=== PATIENT | female | born 1955 | race Caucasian/White ===

== ENCOUNTER 2020-10-25 20:13 | Emergency (ER) | payer OTHER ==
--- NOTE | 2020-10-25 20:43 | XRAY Report ---
PROCEDURE: Chest 1 View X-Ray INDICATIONS: Chest pain TECHNIQUE: One view of the chest was acquired. COMPARISON: Chest radiographs 08/02/2015 FINDINGS: Surgical changes and devices: None. Lungs and pleura: No pleural effusions or pneumothorax. Lungs are clear. Mediastinum: Mediastinal contours appear normal. Heart size is normal. Bones and chest wall: No suspicious bony lesions. Overlying soft tissues appear unremarkable. IMPRESSION: No acute cardiopulmonary abnormality. Reviewed by: Gaetano Catalan MD on 10/25/2020 8:41 PM PDT Approved by: Gaetano Catalan MD on 10/25/2020 8:41 PM PDT Station ID: [id number]
[2020-10-25 20:45] LABS: BASOPHILS % (AUTO) 0.5 %; EOSINOPHILS # (AUTO) 0.1 10^3/uL (0.0-0.7); EOSINOPHILS % (AUTO) 1.7 %; HCT - HEMATOCRIT 41.7 % (37.0-47.0); HGB - HEMOGLOBIN 14.2 g/dL (12.0-16.0); LYMPHOCYTES # (AUTO) 1.7 10^3/uL (1.5-3.5); LYMPHOCYTES % (AUTO) 21.9 %; MEAN CORPUSCULAR HEMOGLOBIN 32.8 pg (27.0-31.0); MEAN CORPUSCULAR HGB CONC 34.1 g/dL (32.0-36.0); MEAN CORPUSCULAR VOLUME 96.3 fL (81.0-99.0); MEAN PLATELET VOLUME 8.1 fL (7.9-10.8); MONOCYTES # (AUTO) 0.7 10^3/uL (0.0-1.0); MONOCYTES % (AUTO) 9.1 %; NEUTROPHILS # (AUTO) 5.1 10^3/uL (1.5-6.6); NEUTROPHILS % (AUTO) 66.7 %; PLT - PLATELET COUNT 226 10^3/uL (130-450); RED BLOOD COUNT 4.33 10^6/uL (4.20-5.40); RED CELL DISTRIBUTION WIDTH 11.6 % (12.0-15.0); WHITE BLOOD COUNT 7.7 x10^3/uL (4.8-10.8)
[2020-10-25 20:59] LABS: ALBUMIN 4.7 g/dL (3.2-5.5); ALBUMIN/GLOBULIN RATIO 1.3 (1.0-2.2); BILIRUBIN,TOTAL 0.7 mg/dL (0.2-1.0); CALCIUM 9.6 mg/dL (8.5-10.3); CREATININE 0.8 mg/dL (0.4-1.0); POTASSIUM 4.1 mmol/L (3.5-5.0); TOTAL PROTEIN 8.4 g/dL (6.7-8.2)
--- NOTE | 2020-10-25 21:48 | ED Physician Documentation ---
PD HPI CHEST PAIN - Stated complaint Stated Complaint: CHEST PX/N/V/DIARRHEA/DIZZINESS - Chief complaint Chief Complaint: Cardiac - History obtained from History obtained from: Patient - History of Present Illness Timing - onset: How many weeks ago (3) Timing - onset during: Rest Timing - duration: Weeks (3) Timing - details: Gradual onset, Still present, Waxing and waning Quality: Dull, Pain Location: Left chest Improved by: Rest Associated symptoms: Nausea, Vomiting, Cough, Other (diarrhea) Similar symptoms before: Diagnosis (flu) Recently seen: Other (had covid vaccine moderna) - Additional information Additional information: 65 y/o female sick for a month with symptoms including abdominal pain, nausea, cough with phlem and fatigue. She reports a COVID exposure between her 2 moderna shots and is concerned about covid. Review of Systems Constitutional: reports: Myalgias, Fatigue. denies: Fever Eyes: denies: Decreased vision Ears: denies: Ear pain Nose: reports: Congestion. denies: Rhinorrhea / runny nose Throat: denies: Sore throat Cardiac: reports: Chest pain / pressure Respiratory: reports: Cough GI: reports: Nausea, Vomiting, Diarrhea : reports: Dysuria. denies: Frequency PD PAST MEDICAL HISTORY - Past Medical History Cardiovascular: Hypertension, High cholesterol Respiratory: Asthma, COPD, Pneumonia, Sleep apnea Psych: Depression, Bipolar disorder - Past Surgical History Past Surgical History: Yes HEENT: Other - Present Medications Home Medications: Ambulatory Orders Medication Instructions Recorded Confirmed Albuterol Sulfate [Albuterol 2 puffs IH Q4HR PRN #1 hfa.aer.ad 05/07/14 09/01/15 Sulfate Hfa] Albuterol [Ventolin Hfa] 2 puffs PO BID 05/07/14 09/01/15 Fluticasone/Salmeterol [Advair 1 puffs PO BID 05/07/14 09/01/15 100-50 Diskus] Propranolol [Inderal] 40 mg PO DAILY 05/07/14 08/02/15 clonazePAM [Clonazepam] 1 mg PO BID 05/07/14 09/01/15 lamoTRIgine [LaMICtal] 300 mg PO DAILY 05/07/14 06/29/14 lamoTRIgine [Lamictal] 50 mg PO DAILY 05/07/14 06/29/14 guaiFENesin/CODEINE [Robitussin AC] 5 - 10 ml PO Q6H PRN #120 ml 06/02/14 09/01/15 buPROPion HCL [Bupropion HCl] 300 mg PO DAILY 06/29/14 09/01/15 Quetiapine Fumarate [Seroquel] 200 mg PO DAILY 08/02/15 Calcium Carbonate/Vitamin D3 [Hm 1 tab PO BID 09/01/15 09/01/15 Calcium 500-Vit D3 200 Cplt] Nystatin Cream [Mycostatin Cream] 1 applic TOP BID 09/01/15 09/01/15 Omeprazole 40 mg PO DAILY 09/01/15 09/01/15 Prazosin HCl 1 cap PO DAILY 09/01/15 09/01/15 QUEtiapine [SEROquel] 600 mg PO DAILY 09/01/15 09/01/15 Quetiapine Fumarate [Seroquel] 50 mg PO DAILY 09/01/15 09/01/15 buPROPion [Wellbutrin Sr] 100 mg PO DAILY 09/01/15 09/01/15 traZODone [Desyrel] 150 mg PO DAILY 09/01/15 09/01/15 Azithromycin [Zithromax] 250 mg PO DAILY #4 tablet 10/26/20 Ondansetron Odt [Zofran] 4 mg TL Q6H PRN #10 tablet 10/26/20 - Allergies Allergies/Adverse Reactions: Allergies Allergy/AdvReac Type Severity Reaction Status Date / Time antidepressant Allergy Unknown Uncoded 10/25/20 20:19 - Social History Does the pt smoke?: Yes Smoking Status: Current some day smoker Does the pt drink ETOH?: No Does the pt have substance abuse?: No - Immunizations Immunizations are current?: No - POLST Patient has POLST: No PD ED PE NORMAL - Vitals Vital signs reviewed: Yes (Hypertensive) - General General: Alert and oriented X 3, No acute distress, Well developed/nourished - HEENT HEENT: Atraumatic, PERRL, EOMI - Neck Neck: Supple, no meningeal sign, No bony TTP - Cardiac Cardiac: No murmur, Other (Tachycardic to 101) - Respiratory Respiratory: No respiratory distress, Clear bilaterally - Abdomen Abdomen: Normal bowel sounds, Soft, Non tender, Non distended, No organomegaly - Back Back: No CVA TTP, No spinal TTP - Derm Derm: Normal color, Warm and dry, No rash - Extremities Extremities: No deformity, No edema - Neuro Neuro: Alert and oriented X 3, nurse practitioner 2-12 intact, No motor deficit, No sensory deficit, Normal speech Eye Opening: Spontaneous Motor: Obeys Commands Verbal: Oriented GCS Score: 15 - Psych Psych: Normal mood, Normal affect Results - Vitals Vitals: Vital Signs - 24 hr 10/25/20 10/25/20 10/26/20 20:19 22:22 00:00 Temperature 36.5 C Heart Rate 72 93 84 Respiratory 16 18 15 Rate Blood Pressure 160/90 H 111/72 135/81 H O2 Saturation 98 95 97 10/26/20 10/26/20 00:46 01:24 Temperature 36.8 C Heart Rate 80 76 Respiratory 15 18 Rate Blood Pressure 133/73 H 132/76 H O2 Saturation 97 100 Oxygen O2 Source Room air - EKG (time done) 2014 Rate: Rate (enter#) (72) Rhythm: NSR Ischemia: Normal ST segments Compare to prior EKG: Unchanged from prior EKG (SPT 08-02-15 no changes ) Computer interpretation: Agree with computer - Labs Labs: Laboratory Tests 10/25/20 10/25/20 10/25/20 20:37 20:37 20:37 WBC 7.7 RBC 4.33 Hgb 14.2 Hct 41.7 MCV 96.3 MCH 32.8 H MCHC 34.1 RDW 11.6 L Plt Count 226 MPV 8.1 Neut # (Auto) 5.1 Lymph # (Auto) 1.7 [place] # (Auto) 0.7 Eos # (Auto) 0.1 Baso # (Auto) 0.0 Absolute Nucleated RBC 0.00 Nucleated RBC % 0.0 Sodium 139 Potassium 4.1 Chloride 103 Carbon Dioxide 27 Anion Gap 9.0 BUN 11 Creatinine 0.8 Estimated GFR (MDRD) 72 L Glucose 95 Calcium 9.6 Total Bilirubin 0.7 AST 24 ALT 31 Alkaline Phosphatase 80 Troponin I High Sens 4.9 Total Protein 8.4 H Albumin 4.7 Globulin 3.7 Albumin/Globulin Ratio 1.3 Lipase 44 Urine Color Urine Clarity Urine pH Ur Specific [place] Urine Protein Urine Glucose (UA) Urine Ketones Urine Occult Blood Urine Nitrite Urine Bilirubin Urine Urobilinogen Ur Leukocyte Esterase Ur Microscopic Review Urine Culture Comments Nasal Adenovirus (PCR) Nasal B. parapertussis DNA (PCR) Nasal Coronavir 229E PCR Nasal Coronavir HKU1 PCR Nasal Coronavir NL63 PCR Nasal Coronavir OC43 PCR Nasal Enterovir/Rhinovir PCR Nasal Influenza B PCR Nasal Influenza A PCR Nasal Parainfluen 1 PCR Nasal Parainfluen 2 PCR Nasal Parainfluen 3 PCR Nasal Parainfluen 4 PCR Nasal RSV (PCR) Nasal B.pertussis DNA PCR Nasal C.pneumoniae (PCR) Clemencia Human Metapneumo PCR Nasal M.pneumoniae (PCR) Nasal SARS-CoV-2 (PCR) 10/25/20 10/25/20 22:31 23:20 WBC RBC Hgb Hct MCV MCH MCHC RDW Plt Count MPV Neut # (Auto) Lymph # (Auto) [place] # (Auto) Eos # (Auto) Baso # (Auto) Absolute Nucleated RBC Nucleated RBC % Sodium Potassium Chloride Carbon Dioxide Anion Gap BUN Creatinine Estimated GFR (MDRD) Glucose Calcium Total Bilirubin AST ALT Alkaline Phosphatase Troponin I High Sens Total Protein Albumin Globulin Albumin/Globulin Ratio Lipase Urine Color YELLOW Urine Clarity CLEAR Urine pH 5.5 Ur Specific [place] 1.015 Urine Protein NEGATIVE Urine Glucose (UA) NEGATIVE Urine Ketones 15 H Urine Occult Blood NEGATIVE Urine Nitrite NEGATIVE Urine Bilirubin NEGATIVE Urine Urobilinogen 0.2 (NORMAL) Ur Leukocyte Esterase NEGATIVE Ur Microscopic Review NOT INDICATED Urine Culture Comments NOT INDICATED Nasal Adenovirus (PCR) NOT DETECTED Nasal B. parapertussis DNA (PCR) NOT DETECTED Nasal Coronavir 229E PCR NOT DETECTED Nasal Coronavir HKU1 PCR NOT DETECTED Nasal Coronavir NL63 PCR NOT DETECTED Nasal Coronavir OC43 PCR NOT DETECTED Nasal Enterovir/Rhinovir PCR NOT DETECTED Nasal Influenza B PCR NOT DETECTED Nasal Influenza A PCR NOT DETECTED Nasal Parainfluen 1 PCR NOT DETECTED Nasal Parainfluen 2 PCR NOT DETECTED Nasal Parainfluen 3 PCR NOT DETECTED Nasal Parainfluen 4 PCR NOT DETECTED Nasal RSV (PCR) NOT DETECTED Nasal B.pertussis DNA PCR NOT DETECTED Nasal C.pneumoniae (PCR) NOT DETECTED [place] Human Metapneumo PCR NOT DETECTED Nasal M.pneumoniae (PCR) NOT DETECTED Nasal SARS-CoV-2 (PCR) NOT DETECTED - Rads (name of study) chest Radiology: Prelim report reviewed (Impression: No acute cardiopulmonary abnormality.), EMP read indepedently, See rad report Procedures - IVC sono (time) 2229 Bedside IVC sono: IVC measures (cm) (0.88), Dehydration (est 2 liter deficit) PD MEDICAL DECISION MAKING - ED course Complexity details: reviewed results, re-evaluated patient, considered differential, d/w patient ED course: 65-year-old female with some GI upset that is gone on for quite some time is also developed cough and congestion she is worried about Covid exposure. She has been fully vaccinated with Moderna and she had an exposure between her 2 shots. Today we found her to be dehydrated on interrogation of the inferior vena cava and we had administered intravenous saline. The patient has a history of reactive airway disease and she has had a cough p roductive of yellow phlegm for some time now. I have asked the patient if she wanted to start antibiotic or treatment for this and she readily accepted this as very likely something that would help. She has had similar symptoms previously which improved with treatment. She is ministered dexamethasone and a azithromycin. We found her to be covid negative . Departure - Departure Disposition: 01 Home, Self Care Clinical Impression: Bronchitis, Dehydration determined by examination Condition: Stable Instructions: ED Upper Resp Infec Abx Tx, ED Dehydration Follow-Up: [facility] [Provider Group] Prescriptions: Azithromycin [Zithromax] 250 mg PO DAILY #4 tablet Ondansetron Odt [Zofran] 4 mg TL Q6H PRN #10 tablet PRN Reason: Nausea / Vomiting Discharge Date/Time: 10/26/20 01:18
[2020-10-25] MEDS ORDERED: SODIUM CHLORIDE 0.9% 1,000 ML IV STA (22:33)
[2020-10-25 23:30] LABS: BILIRUBIN,URINE NEGATIVE (NEGATIVE); GLUCOSE, URINE (UA) NEGATIVE (NEGATIVE); KETONES,URINE (UA) 15 mg/dL (NEGATIVE); LEUKOCYTE ESTERASE, URINE NEGATIVE (NEGATIVE); NITRITE,URINE NEGATIVE (NEGATIVE); OCCULT BLOOD,URINE NEGATIVE (NEGATIVE); PH,URINE 5.5 PH (5.0-7.5); PROTEIN,URINE NEGATIVE (NEGATIVE); UROBILINOGEN,URINE 0.2 (NORMAL) E.U./dL (NORMAL)
[2020-10-25 23:31] LABS: CORONAVIRUS 229E-RESP PCR NOT DETECTED; CORONAVIRUS HKU1-RESP PCR NOT DETECTED; CORONAVIRUS NL63-RESP PCR NOT DETECTED; CORONAVIRUS OC43-RESP PCR NOT DETECTED; HUMAN METAPNEUMOVIRUS NOT DETECTED; INFLUENZA A- RESP PCR PANEL NOT DETECTED; RHINOVIRUS/ENTEROVIRUS NOT DETECTED; SARS-CoV-2 -RESP PCR PANEL NOT DETECTED
[2020-10-25 23:31] LABS: CLARITY,URINE CLEAR (CLEAR)
[2020-10-25 23:32] LABS: B. PARAPERTUSSIS- RESP PCR PAN NOT DETECTED; B. PERTUSSIS- RESP PCR PANEL NOT DETECTED; C. PNEUMONIAE- RESP PCR PANEL NOT DETECTED; INFLUENZA B - RESP PCR PANEL NOT DETECTED; M. PNEUMONIAE- RESP PCR PANEL NOT DETECTED; PARAINFLUENZA VIRUS 1 NOT DETECTED; PARAINFLUENZA VIRUS 2 NOT DETECTED; PARAINFLUENZA VIRUS 3 NOT DETECTED; PARAINFLUENZA VIRUS 4 NOT DETECTED; RSV- RESP PCR PANEL NOT DETECTED
[2020-10-26] MEDS ORDERED: ONDANSETRON 4 MG/2 ML VIAL IVP STA (00:23)
[2020-10-26] MEDS ORDERED: AZITHROMYCIN 250 MG TABLET PO STA (00:23)
[2020-10-26] MEDS ORDERED: DEXAMETHASONE 10 MG/ML VIAL IVP STA (00:23)
[2020-10-26 01:25] VITALS: BP 132/76
== END 2020-10-26 01:18 | disposition home or self-care (01) ==
LOC: ED 20:13
DX: J40 Bronchitis, not specified as acute or chronic (principal); E86.0 Dehydration; F17.200 Nicotine dependence, unspecified, uncomplicated; Z20.822 Contact with and (suspected) exposure to COVID-19
CPT/HCPCS: 0202U; 36415; 71045; 80053; 81003; 83690; 84484; 85025; 93005; 96361; 96374; 96375; 99284; A9270; 81001; 87086

== ENCOUNTER 2020-10-29 22:23 | Emergency (ER) | payer OTHER ==
[2020-10-29 22:41] LABS: BASOPHILS % (AUTO) 0.6 %; EOSINOPHILS # (AUTO) 0.2 10^3/uL (0.0-0.7); EOSINOPHILS % (AUTO) 2.5 %; HCT - HEMATOCRIT 41.4 % (37.0-47.0); HGB - HEMOGLOBIN 14.4 g/dL (12.0-16.0); LYMPHOCYTES # (AUTO) 1.6 10^3/uL (1.5-3.5); LYMPHOCYTES % (AUTO) 24.8 %; MEAN CORPUSCULAR HEMOGLOBIN 33.6 pg (27.0-31.0); MEAN CORPUSCULAR HGB CONC 34.8 g/dL (32.0-36.0); MEAN CORPUSCULAR VOLUME 96.5 fL (81.0-99.0); MEAN PLATELET VOLUME 8.3 fL (7.9-10.8); MONOCYTES # (AUTO) 0.6 10^3/uL (0.0-1.0); MONOCYTES % (AUTO) 9.6 %; NEUTROPHILS % (AUTO) 62.2 %; PLT - PLATELET COUNT 222 10^3/uL (130-450); RED BLOOD COUNT 4.29 10^6/uL (4.20-5.40); RED CELL DISTRIBUTION WIDTH 11.7 % (12.0-15.0); WHITE BLOOD COUNT 6.4 x10^3/uL (4.8-10.8)
--- NOTE | 2020-10-29 22:41 | ED Physician Documentation ---
PD HPI CHEST PAIN - Stated complaint Stated Complaint: HIGH BP, CHEST PX, R FT NUMB, DIRRHEA - Chief complaint Chief Complaint: Cardiac - History obtained from History obtained from: Patient - Additional information Additional information: 65-year-old woman with history of bipolar disorder, high blood pressure on losartan 25 mg, presents with nausea, dizziness, chest pain, and diarrhea that she reports has been going on the past several hours. She also took her blood pressure at home and it was in the 180s so she decided to come to the emergency room. Of note, patient was seen 10/25/2020 for similar symptoms ongoing for the past month and discharged home. Patient also states the bottom of her right foot is cold and tingling. Review of Systems Ten Systems: 10 systems reviewed and negative Constitutional: denies: Fever, Chills Cardiac: reports: Chest pain / pressure Respiratory: denies: Dyspnea GI: reports: Nausea, Diarrhea Neurologic: reports: Other (tingling in R foot). denies: Focal weakness PD PAST MEDICAL HISTORY - Past Medical History Cardiovascular: Hypertension, High cholesterol Respiratory: Asthma, COPD, Pneumonia, Sleep apnea Psych: Depression, Bipolar disorder - Past Surgical History Past Surgical History: Yes HEENT: Other - Present Medications Home Medications: Ambulatory Orders Medication Instructions Recorded Confirmed Albuterol Sulfate [Albuterol 2 puffs IH Q4HR PRN #1 hfa.aer.ad 05/07/14 09/01/15 Sulfate Hfa] Albuterol [Ventolin Hfa] 2 puffs PO BID 05/07/14 09/01/15 Fluticasone/Salmeterol [Advair 1 puffs PO BID 05/07/14 09/01/15 100-50 Diskus] Propranolol [Inderal] 40 mg PO DAILY 05/07/14 08/02/15 clonazePAM [Clonazepam] 1 mg PO BID 05/07/14 09/01/15 lamoTRIgine [LaMICtal] 300 mg PO DAILY 05/07/14 06/29/14 lamoTRIgine [Lamictal] 50 mg PO DAILY 05/07/14 06/29/14 guaiFENesin/CODEINE [Robitussin AC] 5 - 10 ml PO Q6H PRN #120 ml 06/02/14 09/01/15 buPROPion HCL [Bupropion HCl] 300 mg PO DAILY 06/29/14 09/01/15 Quetiapine Fumarate [Seroquel] 200 mg PO DAILY 08/02/15 Calcium Carbonate/Vitamin D3 [Hm 1 tab PO BID 09/01/15 09/01/15 Calcium 500-Vit D3 200 Cplt] Nystatin Cream [Mycostatin Cream] 1 applic TOP BID 09/01/15 09/01/15 Omeprazole 40 mg PO DAILY 09/01/15 09/01/15 Prazosin HCl 1 cap PO DAILY 09/01/15 09/01/15 QUEtiapine [SEROquel] 600 mg PO DAILY 09/01/15 09/01/15 Quetiapine Fumarate [Seroquel] 50 mg PO DAILY 09/01/15 09/01/15 buPROPion [Wellbutrin Sr] 100 mg PO DAILY 09/01/15 09/01/15 traZODone [Desyrel] 150 mg PO DAILY 09/01/15 09/01/15 Azithromycin [Zithromax] 250 mg PO DAILY #4 tablet 10/26/20 Ondansetron Odt [Zofran] 4 mg TL Q6H PRN #10 tablet 10/26/20 - Allergies Allergies/Adverse Reactions: Allergies Allergy/AdvReac Type Severity Reaction Status Date / Time bupropion Allergy Rash Verified 10/29/20 22:44 olanzapine [From Zyprexa] Allergy Unknown Verified 10/29/20 22:50 - Social History Does the pt smoke?: Yes Smoking Status: Current some day smoker Does the pt drink ETOH?: No Does the pt have substance abuse?: No - Immunizations Immunizations are current?: No - POLST Patient has POLST: No PD ED PE NORMAL - Vitals Vital signs reviewed: Yes - General General: Alert and oriented X 3, No acute distress, Well developed/nourished, Other (blood pressure on the monitor upon my physical examination was 132/73) - HEENT HEENT: Atraumatic, PERRL, EOMI - Neck Neck: Supple, no meningeal sign - Cardiac Cardiac: RRR - Respiratory Respiratory: No respiratory distress, Clear bilaterally - Abdomen Abdomen: Non tender, Non distended - Derm Derm: Normal color, Warm and dry - Extremities Extremities: No deformity, Other (2+ BL DP pulses. normal sensation, capillary refill, strength) - Neuro Neuro: Alert and oriented X 3, apprentice cook 2-12 intact, No motor deficit, No sensory deficit, Normal speech - Psych Psych: Normal mood, Normal affect Results - Vitals Vitals: Vital Signs - 24 hr 10/29/20 22:32 Temperature 37.1 C Heart Rate 94 Respiratory 18 Rate Blood Pressure 151/71 H O2 Saturation 98 Oxygen O2 Source Room air - EKG (time done) 2227 Rate: Rate (enter#) (94) Rhythm: NSR [place]: Normal Intervals: Normal [place] QRS: Normal Compare to prior EKG: Unchanged from prior EKG (10/25/20) - Labs Labs: Laboratory Tests 10/29/20 10/29/20 22:32 22:32 WBC 6.4 RBC 4.29 Hgb 14.4 Hct 41.4 MCV 96.5 MCH 33.6 H MCHC 34.8 RDW 11.7 L Plt Count 222 MPV 8.3 Neut # (Auto) 4.0 Lymph # (Auto) 1.6 [place] # (Auto) 0.6 Eos # (Auto) 0.2 Baso # (Auto) 0.0 Absolute Nucleated RBC 0.00 Nucleated RBC % 0.0 Sodium 136 Potassium 3.9 Chloride 99 L Carbon Dioxide 26 Anion Gap 11.0 BUN 11 Creatinine 0.8 Estimated GFR (MDRD) 72 L Glucose 174 H Calcium 9.5 Total Bilirubin 0.5 AST 26 ALT 28 Alkaline Phosphatase 80 Total Protein 8.0 Albumin 4.5 Globulin 3.5 Albumin/Globulin Ratio 1.3 Lipase 59 H PD MEDICAL DECISION MAKING - ED course ED course: 65-year-old woman presents with a variety of complaints including chest pain that has been intermittent over the past 6 hours and high blood pressure this evening. Her BP in the emergency department is improved from home readings and her symptoms are resolving on their own. CXR, EKG, labwork noncontributory. Heart score 2 (age, risk factors). Plan to dc home with outpatient f/u with her primary doctor tomorrow.
[2020-10-29 22:57] LABS: ALBUMIN 4.5 g/dL (3.2-5.5); ALBUMIN/GLOBULIN RATIO 1.3 (1.0-2.2); BILIRUBIN,TOTAL 0.5 mg/dL (0.2-1.0); CALCIUM 9.5 mg/dL (8.5-10.3); CREATININE 0.8 mg/dL (0.4-1.0); POTASSIUM 3.9 mmol/L (3.5-5.0)
--- NOTE | 2020-10-29 23:03 | XRAY Report ---
PROCEDURE: Chest 1 View X-Ray INDICATIONS: Chest Pain TECHNIQUE: One view of the chest was acquired. COMPARISON: Chest radiographs dated 10/25/2020 FINDINGS: Surgical changes and devices: Surgical clips are seen projecting over the right lower chest. Lungs and pleura: No pleural effusions or pneumothorax. Lungs are clear. Mediastinum: Mediastinal contours appear normal. Heart size is normal. Bones and chest wall: No suspicious bony lesions. Overlying soft tissues appear unremarkable. IMPRESSION: No acute cardiopulmonary abnormality. Reviewed by: Gaetano Catalan MD on 10/29/2020 11:02 PM PDT Approved by: Gaetano Catalan MD on 10/29/2020 11:02 PM PDT Station ID: [id number]
[2020-10-29 23:47] VITALS: BP 124/74
== END 2020-10-29 23:45 | disposition home or self-care (01) ==
LOC: ED 22:23
DX: R07.9 Chest pain, unspecified (principal); I10 Essential (primary) hypertension; R20.2 Paresthesia of skin; R11.0 Nausea; R19.7 Diarrhea, unspecified; F17.200 Nicotine dependence, unspecified, uncomplicated
CPT/HCPCS: 36415; 80053; 83690; 84484; 85025; 93005; 99283; 99284

== ENCOUNTER 2020-12-05 18:09 | Emergency (ER) | payer OTHER ==
[2020-12-05 18:51] LABS: BASOPHILS # (AUTO) 0.1 10^3/uL (0.0-0.1); BASOPHILS % (AUTO) 0.7 %; EOSINOPHILS # (AUTO) 0.1 10^3/uL (0.0-0.7); EOSINOPHILS % (AUTO) 1.6 %; HCT - HEMATOCRIT 41.5 % (37.0-47.0); HGB - HEMOGLOBIN 14.4 g/dL (12.0-16.0); LYMPHOCYTES # (AUTO) 1.3 10^3/uL (1.5-3.5); LYMPHOCYTES % (AUTO) 18.9 %; MEAN CORPUSCULAR HEMOGLOBIN 33.3 pg (27.0-31.0); MEAN CORPUSCULAR HGB CONC 34.7 g/dL (32.0-36.0); MEAN CORPUSCULAR VOLUME 96.1 fL (81.0-99.0); MEAN PLATELET VOLUME 8.2 fL (7.9-10.8); MONOCYTES # (AUTO) 0.6 10^3/uL (0.0-1.0); MONOCYTES % (AUTO) 9.4 %; NEUTROPHILS # (AUTO) 4.7 10^3/uL (1.5-6.6); NEUTROPHILS % (AUTO) 69.1 %; PLT - PLATELET COUNT 204 10^3/uL (130-450); RED BLOOD COUNT 4.32 10^6/uL (4.20-5.40); RED CELL DISTRIBUTION WIDTH 11.6 % (12.0-15.0); WHITE BLOOD COUNT 6.8 x10^3/uL (4.8-10.8)
[2020-12-05 19:01] LABS: CALCIUM 9.4 mg/dL (8.5-10.3); CREATININE 0.7 mg/dL (0.4-1.0); POTASSIUM 4.2 mmol/L (3.5-5.0)
--- NOTE | 2020-12-05 19:01 | ED Physician Documentation ---
History of Present Illness - Stated complaint Stated Complaint: HIGH BP - Chief complaint Chief Complaint: General - Additonal information Additional information: 69-year-old female who has a history of bipolar disorder as well as hypertension presents to the emergency department for evaluation of feeling weak fatigued and dizzy. She reports that her blood pressure has been elevated at home almost as high as 200. She is occasionally having some chest pain though not exertional. None at this time. Occasionally nauseated but no vomiting diarrhea or abdominal pain. Seen in this emergency department approximately 1 month ago for evaluation of chest pain with a negative work-up advise close follow-up with PCP and/or manager report. PD PAST MEDICAL HISTORY - Past Medical History Cardiovascular: Hypertension, High cholesterol Respiratory: Asthma, COPD, Pneumonia, Sleep apnea Psych: Depression, Bipolar disorder - Past Surgical History Past Surgical History: Yes HEENT: Other - Present Medications Home Medications: Ambulatory Orders Medication Instructions Recorded Confirmed Albuterol Sulfate [Albuterol 2 puffs IH Q4HR PRN #1 hfa.aer.ad 05/07/14 09/01/15 Sulfate Hfa] Albuterol [Ventolin Hfa] 2 puffs PO BID 05/07/14 09/01/15 Fluticasone/Salmeterol [Advair 1 puffs PO BID 05/07/14 09/01/15 100-50 Diskus] Propranolol [Inderal] 40 mg PO DAILY 05/07/14 08/02/15 clonazePAM [Clonazepam] 1 mg PO BID 05/07/14 09/01/15 lamoTRIgine [LaMICtal] 300 mg PO DAILY 05/07/14 06/29/14 lamoTRIgine [Lamictal] 50 mg PO DAILY 05/07/14 06/29/14 guaiFENesin/CODEINE [Robitussin AC] 5 - 10 ml PO Q6H PRN #120 ml 06/02/14 09/01/15 buPROPion HCL [Bupropion HCl] 300 mg PO DAILY 06/29/14 09/01/15 Quetiapine Fumarate [Seroquel] 200 mg PO DAILY 08/02/15 Calcium Carbonate/Vitamin D3 [Hm 1 tab PO BID 09/01/15 09/01/15 Calcium 500-Vit D3 200 Cplt] Nystatin Cream [Mycostatin Cream] 1 applic TOP BID 09/01/15 09/01/15 Omeprazole 40 mg PO DAILY 09/01/15 09/01/15 Prazosin HCl 1 cap PO DAILY 09/01/15 09/01/15 QUEtiapine [SEROquel] 600 mg PO DAILY 09/01/15 09/01/15 Quetiapine Fumarate [Seroquel] 50 mg PO DAILY 09/01/15 09/01/15 buPROPion [Wellbutrin Sr] 100 mg PO DAILY 09/01/15 09/01/15 traZODone [Desyrel] 150 mg PO DAILY 09/01/15 09/01/15 Azithromycin [Zithromax] 250 mg PO DAILY #4 tablet 10/26/20 Ondansetron Odt [Zofran] 4 mg TL Q6H PRN #10 tablet 10/26/20 - Allergies Allergies/Adverse Reactions: Allergies Allergy/AdvReac Type Severity Reaction Status Date / Time bupropion Allergy Rash Verified 12/05/20 18:33 olanzapine [From Zyprexa] Allergy Unknown Verified 12/05/20 18:33 - Social History Does the pt smoke?: Yes Smoking Status: Current every day smoker Does the pt drink ETOH?: No Does the pt have substance abuse?: No - Immunizations Immunizations are current?: No - POLST Patient has POLST: No PD ED PE NORMAL - General General: Alert and oriented X 3, No acute distress - HEENT HEENT: PERRL - Neck Neck: Supple, no meningeal sign - Cardiac Cardiac: RRR, No murmur - Respiratory Respiratory: Clear bilaterally - Abdomen Abdomen: Normal bowel sounds, Soft, Non tender, Non distended - Back Back: No CVA TTP - Derm Derm: Normal color, No rash - Extremities Extremities: No deformity, No tenderness to palpate, Normal ROM s pain - Neuro Neuro: Alert and oriented X 3, marketing account executive 2-12 intact, No sensory deficit, Normal speech, Other (Normal gait without assistance.) Eye Opening: Spontaneous Motor: Obeys Commands Verbal: Oriented GCS Score: 15 Results - Vitals Vitals: Vital Signs - 24 hr 12/05/20 12/05/20 18:24 19:31 Temperature 37.2 C Heart Rate 84 76 Respiratory 20 13 Rate Blood Pressure 195/98 H 162/83 H O2 Saturation 95 96 Oxygen O2 Source Room air - EKG (time done) 1849 Rate: Rate (enter#) (77) [place]: Normal Intervals: Normal [place]. No: Prolonged QT QRS: Normal Ischemia: Normal ST segments Compare to prior EKG: Unchanged from prior EKG Computer interpretation: Agree with computer - Labs Labs: Laboratory Tests 12/05/20 12/05/20 12/05/20 18:46 18:46 18:46 WBC 6.8 RBC 4.32 Hgb 14.4 Hct 41.5 MCV 96.1 MCH 33.3 H MCHC 34.7 RDW 11.6 L Plt Count 204 MPV 8.2 Neut # (Auto) 4.7 Lymph # (Auto) 1.3 L [place] # (Auto) 0.6 Eos # (Auto) 0.1 Baso # (Auto) 0.1 Absolute Nucleated RBC 0.00 Nucleated RBC % 0.0 Sodium 138 Potassium 4.2 Chloride 103 Carbon Dioxide 26 Anion Gap 9.0 BUN 10 Creatinine 0.7 Estimated GFR (MDRD) 84 L Glucose 125 H Calcium 9.4 Troponin I High Sens 3.8 Urine Opiates Screen Ur Oxycodone Screen Urine Methadone Screen Ur Propoxyphene Screen Ur Barbiturates Screen Ur Tricyclics Screen Ur Phencyclidine Scrn Ur Amphetamine Screen U Methamphetamines Scrn U Benzodiazepines Scrn Urine Cocaine Screen U Cannabinoids Screen 12/05/20 19:13 WBC RBC Hgb Hct MCV MCH MCHC RDW Plt Count MPV Neut # (Auto) Lymph # (Auto) [place] # (Auto) Eos # (Auto) Baso # (Auto) Absolute Nucleated RBC Nucleated RBC % Sodium Potassium Chloride Carbon Dioxide Anion Gap BUN Creatinine Estimated GFR (MDRD) Glucose Calcium Troponin I High Sens Urine Opiates Screen NEGATIVE Ur Oxycodone Screen NEGATIVE Urine Methadone Screen NEGATIVE Ur Propoxyphene Screen NEGATIVE Ur Barbiturates Screen NEGATIVE Ur Tricyclics Screen NEGATIVE Ur Phencyclidine Scrn NEGATIVE Ur Amphetamine Screen NEGATIVE U Methamphetamines Scrn NEGATIVE U Benzodiazepines Scrn NEGATIVE Urine Cocaine Screen NEGATIVE U Cannabinoids Screen NEGATIVE - Rads (name of study) CXR Radiology: Final report received (No acute cardiopulmonary pathology.) PD MEDICAL DECISION MAKING - ED course Complexity details: reviewed results, re-evaluated patient, d/w patient ED course: 65-year-old female who carries a history of hypertension presents the emergency department for evaluated of blood pressures that she has noted over the last few days have been approaching 1 90-200. She is seen about 1 month ago in this ER for chest pain and high blood pressure. She did follow-up with her primary care provider who changed her losartan dose from 25 mg daily to 50. Patient is denying any chest pain or shortness of air. She has a normal neurological and cerebellar exam. Screening EKG is nonischemic. Screening labs are also unremarkable with a negative troponin. I discussed with the patient and her son at the bedside that though she does have elevated blood pressures acute adjustment is not indicated today given NITIN guidelines. I have encouraged her to check her blood pressure in the morning when she wakes up, 2 hours after taking her lisinopril and at night before going to bed. She will keep a diary and follow-up with her primary care provider. Emergent return precautions were discussed for symptoms that would include sudden severe headache, chest pain and shortness of air. Departure - Departure Disposition: 01 Home, Self Care Clinical Impression: Hypertension Qualifiers: Hypertension type: unspecified Qualified Code(s): I10 - Essential (primary) hypertension Condition: Stable Record reviewed to determine appropriate education?: Yes Instructions: Hypertension Control Comments: Jane you're seen in the emergency department today for concerns that your blood pressure has been elevated at home. And you are correct the blood pressures are high however what is important is that you are not showing signs of a stroke or heart attack. Your screening labs are normal. Your EKG and chest x-ray are normal. The control of blood pressure is something that typically is achieved with good follow-through over a few months. I encourage you to continue to take the losartan. Please check your blood pressure in the morning when you wake up, about 2 hours after taking the losartan and again at night before bed. Please keep a journal of these blood pressures and follow-up in the next few weeks with your primary care doctor. Based on these blood pressure readings outside of the emergency department they may want to make additional changes to your blood pressure medic ation or dosages. Return to the ER if you have blood pressures greater than 220, you develop chest pain, sudden severe headache, have slurred speech or facial droop.
--- NOTE | 2020-12-05 19:14 | XRAY Report ---
PROCEDURE: Chest 1 View X-Ray INDICATIONS: cough, dyspnea TECHNIQUE: One view of the chest was acquired. COMPARISON: Chest x-ray one view, 10/29/2020. FINDINGS: Surgical changes and devices: None. Lungs and pleura: No pleural effusions or pneumothorax. No pulmonary infiltrate. Mediastinum: Mediastinal contours appear normal. Heart size is normal. Bones and chest wall: No suspicious bony lesions. Overlying soft tissues appear unremarkable. IMPRESSION: 1. No acute cardiopulmonary disease. 2. A nodular density in the right midlung zone. A nonurgent chest CT is recommended for follow-up. Reviewed by: Florence An MD on 12/05/2020 7:12 PM PDT Approved by: Florence An MD on 12/05/2020 7:12 PM PDT Station ID: [id number]
[2020-12-05 19:18] LABS: MUDS CUTOFF CONCENTRATIONS CUTOFF CONC BELOW:
[2020-12-05 19:29] LABS: AMPHETAMINE SCREEN,URINE NEGATIVE (NEGATIVE); BARBITURATE SCREEN,UR NEGATIVE (NEGATIVE); BENZODIAZEPINES SCREEN, URINE NEGATIVE (NEGATIVE); COCAINE SCREEN URINE NEGATIVE (NEGATIVE); METHADONE SCREEN, URINE NEGATIVE (NEGATIVE); METHAMPHETAMINES SCREEN, URINE NEGATIVE (NEGATIVE); OPIATE SCREEN, URINE NEGATIVE (NEGATIVE); OXYCODONE SCREEN, URINE NEGATIVE (NEGATIVE); PROPOXYPHENE SCREEN, URINE NEGATIVE (NEGATIVE); THC CANNABINOID SCREEN, URINE NEGATIVE (NEGATIVE); TRICYCLIC ANTIDEPRESSANT,URINE NEGATIVE (NEGATIVE)
[2020-12-05 20:27] VITALS: BP 144/80
== END 2020-12-05 20:34 | disposition home or self-care (01) ==
LOC: ED 18:09
DX: I10 Essential (primary) hypertension (principal); F17.200 Nicotine dependence, unspecified, uncomplicated
CPT/HCPCS: 36415; 80048; 80306; 84484; 85025; 93005; 99281; 99284

== ENCOUNTER 2020-12-10 11:16 | Outpatient (CLI) | payer OTHER ==
--- NOTE | 2020-12-10 10:00 | XRAY Report ---
PROCEDURE: Wrist 3 View RT INDICATIONS: RIGHT WRIST PAIN TECHNIQUE: 3 views of the wrist were acquired. COMPARISON: None. FINDINGS: No acute fracture. Scattered subchondral sclerosis and spurring. Moderate first CMC joint degeneratio n. Soft tissues: No suspicious soft tissue calcifications. IMPRESSION: Moderate first CMC joint degeneration Reviewed by: Diony Mattson MD on 12/10/2020 9:59 AM PDT Approved by: Diony Mattson MD on 12/10/2020 9:59 AM PDT Station ID: [id number]
== END 2020-12-10 11:17 | disposition home or self-care (01) ==
LOC: DI.N 11:16
PROVIDERS: ATTEND Physician Assistant
DX: M18.11 Unilateral primary osteoarthritis of first carpometacarpal joint, right hand (principal)

== ENCOUNTER 2021-06-08 21:54 | Emergency (ER) | payer OTHER ==
--- OUTSIDE RECORDS SUMMARY | 2021-06-08 22:32 | EXTERNAL MEDICAL SUMMARY RPT | Continuity of Care Document ---
:1955 Author Organization [facility] Address [address] [place] [address] Phone Care Team Providers Name Role Phone Patti Unavailable Unavailable Allergies No information. Encounters No information. Medications No information. Problems date description facility [id number] Malignant neoplasm of unspecified site of [facility] [id number] Malignant neoplasm of overlapping sites of [facility] [id number] Estrogen receptor positive status [ER+] [facility] [id number] Malignant neoplasm of unspecified site of [facility] Results No information.
[2021-06-08] MEDS ORDERED: SODIUM CHLORIDE 0.9% 1,000 ML IV STA (22:34)
[2021-06-08 22:50] LABS: BASOPHILS % (AUTO) 0.7 %; EOSINOPHILS # (AUTO) 0.2 10^3/uL (0.0-0.7); EOSINOPHILS % (AUTO) 3.1 %; HCT - HEMATOCRIT 38.1 % (37.0-47.0); HGB - HEMOGLOBIN 13.6 g/dL (12.0-16.0); LYMPHOCYTES # (AUTO) 1.4 10^3/uL (1.5-3.5); LYMPHOCYTES % (AUTO) 23.5 %; MEAN CORPUSCULAR HEMOGLOBIN 33.5 pg (27.0-31.0); MEAN CORPUSCULAR HGB CONC 35.7 g/dL (32.0-36.0); MEAN CORPUSCULAR VOLUME 93.8 fL (81.0-99.0); MEAN PLATELET VOLUME 8.3 fL (7.9-10.8); MONOCYTES # (AUTO) 0.6 10^3/uL (0.0-1.0); MONOCYTES % (AUTO) 9.9 %; NEUTROPHILS # (AUTO) 3.9 10^3/uL (1.5-6.6); NEUTROPHILS % (AUTO) 62.6 %; PLT - PLATELET COUNT 204 10^3/uL (130-450); RED BLOOD COUNT 4.06 10^6/uL (4.20-5.40); RED CELL DISTRIBUTION WIDTH 11.5 % (12.0-15.0); WHITE BLOOD COUNT 6.1 x10^3/uL (4.8-10.8)
[2021-06-08 23:03] LABS: ALBUMIN 4.1 g/dL (3.2-5.5); ALBUMIN/GLOBULIN RATIO 1.1 (1.0-2.2); BILIRUBIN,TOTAL 0.4 mg/dL (0.2-1.0); CALCIUM 9.3 mg/dL (8.5-10.3); CREATININE 0.8 mg/dL (0.4-1.0); POTASSIUM 3.5 mmol/L (3.5-5.0)
--- NOTE | 2021-06-08 23:05 | ED Physician Documentation ---
History of Present Illness - Stated complaint Stated Complaint: HIGH BP - Chief complaint Chief Complaint: Neuro - Additonal information Additional information: Patient is a 65-year-old female with a history significant for hypertension presenting for evaluation of intermittent episodes of feeling lightheaded and nauseous over the last month. Patient had another episode today around 3:00 While going from sitting to standing. She checked her blood pressure this afternoon it was elevated in the 200 range. She reports noting that at home her home blood pressure machine will read in the 200s but when she goes to the doctor's office it is much improved. She has never compared her home blood pressure machine readings to the doctor's office at the same time. She currently denies dizziness or lightheadedness. She denies vertiginous symptoms. Denies vision changes, chest pain, difficulty breathing, abdominal pain or vomiting. She has been compliant with her antihypertensives. Review of Systems Constitutional: denies: Fever Nose: denies: Congestion Cardiac: denies: Chest pain / pressure, Palpitations Respiratory: denies: Dyspnea, Cough GI: reports: Nausea. denies: Abdominal Pain, Vomiting : denies: Dysuria, Hematuria Skin: denies: Rash Musculoskeletal: denies: Back pain Neurologic: reports: Near syncope. denies: Syncope, Headache (Lightheaded) PD PAST MEDICAL HISTORY - Past Medical History Past Medical History: Yes Cardiovascular: Hypertension, High cholesterol Respiratory: Asthma, COPD, Pneumonia, Sleep apnea Psych: Depression, Bipolar disorder - Past Surgical History Past Surgical History: Yes HEENT: Other - Present Medications Home Medications: Ambulatory Orders Medication Instructions Recorded Confirmed Albuterol Sulfate [Albuterol 2 puffs IH Q4HR PRN #1 hfa.aer.ad 05/07/14 09/01/15 Sulfate Hfa] Albuterol [Ventolin Hfa] 2 puffs PO BID 05/07/14 09/01/15 Fluticasone/Salmeterol [Advair 1 puffs PO BID 05/07/14 09/01/15 100-50 Diskus] Propranolol [Inderal] 40 mg PO DAILY 05/07/14 08/02/15 clonazePAM [Clonazepam] 1 mg PO BID 05/07/14 09/01/15 lamoTRIgine [LaMICtal] 300 mg PO DAILY 05/07/14 06/29/14 lamoTRIgine [Lamictal] 50 mg PO DAILY 05/07/14 06/29/14 guaiFENesin/CODEINE [Robitussin AC] 5 - 10 ml PO Q6H PRN #120 ml 06/02/14 09/01/15 buPROPion HCL [Bupropion HCl] 300 mg PO DAILY 06/29/14 09/01/15 Quetiapine Fumarate [Seroquel] 200 mg PO DAILY 08/02/15 Calcium Carbonate/Vitamin D3 [Hm 1 tab PO BID 09/01/15 09/01/15 Calcium 500-Vit D3 200 Cplt] Nystatin Cream [Mycostatin Cream] 1 applic TOP BID 09/01/15 09/01/15 Omeprazole 40 mg PO DAILY 09/01/15 09/01/15 Prazosin HCl 1 cap PO DAILY 09/01/15 09/01/15 QUEtiapine [SEROquel] 600 mg PO DAILY 09/01/15 09/01/15 Quetiapine Fumarate [Seroquel] 50 mg PO DAILY 09/01/15 09/01/15 buPROPion [Wellbutrin Sr] 100 mg PO DAILY 09/01/15 09/01/15 traZODone [Desyrel] 150 mg PO DAILY 09/01/15 09/01/15 Azithromycin [Zithromax] 250 mg PO DAILY #4 tablet 10/26/20 Ondansetron Odt [Zofran] 4 mg TL Q6H PRN #10 tablet 10/26/20 Ondansetron Odt [Zofran] 4 mg TL Q6H PRN #10 tablet 06/08/21 - Allergies Allergies/Adverse Reactions: Allergies Allergy/AdvReac Type Severity Reaction Status Date / Time bupropion Allergy Rash Verified 06/08/21 22:08 olanzapine [From Zyprexa] Allergy Unknown Verified 06/08/21 22:08 - Social History Does the pt smoke?: Yes Smoking Status: Current every day smoker Does the pt drink ETOH?: No Does the pt have substance abuse?: No - Immunizations Immunizations are current?: No - POLST Patient has POLST: No PD ED PE NORMAL - General General: Alert and oriented X 3, No acute distress, Well developed/nourished - HEENT HEENT: Atraumatic, PERRL, EOMI, Moist mucous membranes - Neck Neck: Supple, no meningeal sign - Cardiac Cardiac: RRR, No murmur, Strong equal pulses - Respiratory Respiratory: No respiratory distress, Clear bilaterally - Abdomen Abdomen: Normal bowel sounds, Soft, Non tender, Non distended - Back Back: No CVA TTP - Derm Derm: Normal color, No rash - Extremities Extremities: No deformity, No edema - Neuro Neuro: Alert and oriented X 3, 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, No motor deficit, No sensory deficit, Normal speech - Psych Psych: Normal mood, Normal affect Results - Vitals Vitals: Vital Signs - 24 hr 06/08/21 06/08/21 06/08/21 22:01 22:16 22:53 Temperature 2.2 C L 36.2 C L Heart Rate 106 H 94 Heart Rate [ 99 Sitting] Heart Rate [ 94 Standing] Heart Rate [ 84 Supine] Respiratory 16 15 Rate Blood Pressure 140/86 H 150/78 H Blood Pressure 160/91 H [Sitting] Blood Pressure 147/74 H [Standing] Blood Pressure 137/70 H [Supine] O2 Saturation 95 96 06/08/21 06/08/21 06/09/21 23:00 23:50 00:41 Temperature 36.3 C L 36.4 C L Heart Rate 84 81 72 Heart Rate [ Sitting] Heart Rate [ Standing] Heart Rate [ Supine] Respiratory 15 15 16 Rate Blood Pressure 143/68 H 148/62 H 138/75 H Blood Pressure [Sitting] Blood Pressure [Standing] Blood Pressure [Supine] O2 Saturation 96 98 99 Oxygen O2 Source Room air - EKG (time done) 2241 Rate: Rate (enter#) (84) Rhythm: NSR (84) [place]: Normal Ischemia: No: ST elevation c/w ischemia - Labs Labs: Laboratory Tests 06/08/21 06/08/21 06/08/21 22:45 22:45 22:45 WBC 6.1 RBC 4.06 L Hgb 13.6 Hct 38.1 MCV 93.8 MCH 33.5 H MCHC 35.7 RDW 11.5 L Plt Count 204 MPV 8.3 Neut # (Auto) 3.9 Lymph # (Auto) 1.4 L Ness # (Auto) 0.6 Eos # (Auto) 0.2 Baso # (Auto) 0.0 Absolute Nucleated RBC 0.00 Nucleated RBC % 0.0 Sodium 139 Potassium 3.5 Chloride 101 Carbon Dioxide 25 Anion Gap 13.0 BUN 8 Creatinine 0.8 Estimated GFR (MDRD) 72 L Glucose 139 H Calcium 9.3 Total Bilirubin 0.4 AST 25 ALT 26 Alkaline Phosphatase 67 Troponin I High Sens 3.2 Total Protein 8.0 Albumin 4.1 Globulin 3.9 Albumin/Globulin Ratio 1.1 PD MEDICAL DECISION MAKING - ED course Complexity details: reviewed results, re-evaluated patient, d/w patient ED course: Patient presenting for evaluation of nausea, feelings of lightheadedness and concerns for elevated blood pressure. Your blood pressure has improved from patient's home readings. Her neurologic exam is normal. She does not exhibit vertiginous symptoms. EKG is without signs of acute ischemia and labs are also unrevealing. Doubt ACS or PE. Patient symptoms have been present for greater than 6 hours. Patient is feeling better with IV fluids and nausea medication. Her orthostatics are negative. No signs of arrhythmia on monitor. Patient is scheduled to have a cardiology referral from her PCP. Patient is aware of need for close follow-up as well as strict return precautions. Departure - Departure Disposition: 01 Home, Self Care Clinical Impression: Nausea alone, Light-headed feeling Condition: Stable Instructions: ED HTN Established Prescriptions: Ondansetron Odt [Zofran] 4 mg TL Q6H PRN #10 tablet PRN Reason: Nausea / Vomiting Comments: Jane - Your evaluated today with lab testing and an EKG to check your heart. Fortunately your labs were all very reassuring. Your blood pressure was also improved in the emergency department and not severely elevated. You were given medicine for nausea and a prescription was sent to the [facility] in [place]. Please have close follow up with your primary doctor and follow up with the [facility] they refer you to. Return to the ER with any worsening symptoms such as dizziness, chest pain, trouble breathing or any concerns. Discharge Date/Time: 06/09/21 00:41
[2021-06-08] MEDS ORDERED: ONDANSETRON 4 MG/2 ML VIAL IVP STA (23:32)
[2021-06-09 00:42] VITALS: BP 138/75
== END 2021-06-09 00:41 | disposition home or self-care (01) ==
LOC: ED 21:54
DX: R42 Dizziness and giddiness (principal); R11.0 Nausea; F17.200 Nicotine dependence, unspecified, uncomplicated
CPT/HCPCS: 36415; 80053; 84484; 85025; 93005; 96374; 99283